=== PATIENT | female | born 1995 | race African-American/Black ===

== ENCOUNTER 2024-11-16 22:01 | Emergency (ER) | payer OTHER, SELFPAY ==
--- NOTE | ~2024-11-16 | XR_ITS ---
Right Hand Technique: PA, oblique, and lateral views were obtained. Clinical History: Pain Findings: No acute fracture or dislocation is seen. Osseous alignment is anatomic. Joint spaces are p reserved. Soft tissues are unremarkable. Impression: Unremarkable right hand. Reviewed, dictated and finalized at location M. Impression: Unremarkable right hand.
[2024-11-16 22:12] VITALS: BP 103/91; PULSE 94; RESP 18; TEMP 37.1; O2SAT 100
--- NOTE | 2024-11-16 22:48 | ED_ITS ---
HPI - Extremity Injury (Upper) General Chief Complaint: Extremity Injury, Upper Stated Complaint: Right hand pain Time Seen by Provider: 11/16/24 22:27 Source: patient Mode of arrival: ambulatory Limitations: no limitations History of Present Illness HPI narrative: This is a 29-year-old female who presents to the ED for chief complaint of right wrist, right upper extremity pain of the past week to 2 weeks. Patient states that she has been working for [employer] for the past 6 months. 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 She has radiating, shooting pains from right hand up into the right upper arm. States that the pain is worse when she wakes up in the mornings. Denies numbness or specific injury to the hand or wrist. Related Data Allergies Allergy/AdvReac Type Severity Reaction Status Date / Time No Known Allergies Allergy Verified 11/16/24 22:02 Review of Systems Review of Systems: All systems as dictated in HPI Exam Narrative: GENERAL: Well-appearing, well-nourished, and in no acute distress. HEAD: Normocephalic, atraumatic. EYES: PERRLA and EOMI. ENT: Nares clear, no rhinorrhea or epistaxis. Mucous membranes moist. Oropharynx without tonsillar hypertrophy exudate or other lesions. NECK: Supple. No adenopathy or masses. CHEST: No respiratory distress. Clear to auscultation. No wheezes rales or rhonchi HEART: Regular rate and rhythm. No murmur heard. Normal peripheral pulses. ABDOMEN: Soft, nontender, nondistended, normal active bowel sounds. MSK: Normal range of motion. No edema. SKIN: Warm, dry, no rash. NEURO: Alert and oriented x4. No focal deficits. PSYCH: Normal mood and affect. Course Vital Signs Vital signs: Vital Signs Temperature 98.8 F 11/16/24 22:12 Pulse Rate 94 11/16/24 22:12 Respiratory Rate 18 11/16/24 22:12 Blood Pressure 103/91 H 11/16/24 22:12 Pulse Oximetry 100 11/16/24 22:12 Oxygen Delivery Room Air 11/16/24 22:12 Temperature 98.8 F 11/16/24 22:12 Pulse Rate 94 11/16/24 22:12 Respiratory Rate 18 11/16/24 22:12 Blood Pressure 103/91 H 11/16/24 22:12 Pulse Oximetry 100 11/16/24 22:12 Oxygen Delivery Room Air 11/16/24 22:12 MDM - Extremity Injury (Upper) MDM Narrative Medical decision making narrative: This is a 29-year-old female who presents to the ED for chief complaint of right wrist pain and right arm pain, related to repetitive movements at her job. Vitals are normal. Exam remarkable for the above. Right hand x-ray preliminary read shows no acute osseous findings. Presentation most likely consistent with repetitive use injury. Encouraged over the counter wrist brace to help with symptoms. Naproxen Rx given as well. Patient will be discharged in stable condition. Supportive measures discussed and return precautions given. Patient is understanding and agreeable with plan for discharge with PCP follow-up. Discharge Plan Discharge Clinical Impression: Pain of right upper extremity Patient Disposition: Home, Self-Care Condition: Stable Instructions: Antibiotic Form Additional Instructions: Your exam and imaging today are reassuring. This is probably who pain from overuse. Please use [id number] wrist brace to assist with pain. Follow- up with PCP closely on this issue. Take naproxen twice per day. If you have any new or worsening symptoms please return to the ER for further evaluation. Patient Language: Bangladeshi Prescriptions: New naproxen 500 mg tablet 500 mg PO BID PRN (Reason: pain) Qty: 30 0RF Follow-up/Referrals: PHYSICIAN,HIGH SCHOOL MATH TEACHER [Primary Care Provider] - Matt Moncada MD [Physician] - Stand Alone Forms: Work/School Release IP Time of Disposition: 22:52
--- OUTSIDE RECORDS SUMMARY | 2024-11-16 22:50 | XMS_ITS | Patient Health Record ---
Author Organization [facility] Address [address] [place] [address] Care Team Providers Care Tax Economist Name Role Phone Lenard Espana Primary Care Provider Mumtaz Brewer Amos [phone] Allergies No Known Allergies Results Component Value Reference Range Notes 12 Panel Urine Drug Screen Reviewed date:11/12/2024 10:07:42 AM Interpretation: Performing Lab: Notes/Report: THC neg CAM neg MOP (OPI) neg AMP neg MET neg BAR neg BZO neg MDMA neg MTD neg OXY neg PCP neg BUP neg HIV Screen *HIV 1, 2 Ab, p24 Ag ([id number]) Reviewed date:11/13/2024 09:02:07 AM Interpretation:Normal Performing Lab:[facility], [address] [facility], Phone - [phone], Director - [facility] Notes/Report: HIV Ab/p24 Ag Screen Non Reactive Non Reactive HIV-1/HIV-2 antibodies and HIV-1 p24 antigen were NOT detected. There is no laboratory evidence of HIV infection. HIV Negative CBC With Differential/Platel et* Reviewed date:11/13/2024 09:02:08 AM Interpretation:Normal Performing Lab:[facility], [address] [facility], [place], Phone - [phone], [facility] Notes/Report: WBC 4.0 3.4-10.8 x10E3/uL RBC 3.95 3.77-5.28 x10E6/uL Hemoglobin 11.4 11.1-15.9 g/dL Hematocrit 35.2 34.0-46.6 % MCV 89 79-97 fL MCH 28.9 26.6-33.0 pg MCHC 32.4 31.5-35.7 g/dL RDW 14.6 11.7-15.4 % Platelets 352 150-450 x10E3/uL Neutrophils 59 Not Estab. % Lymphs 28 Not Estab. % Monocytes 11 Not Estab. % Eos 1 Not Estab. % Basos 1 Not Estab. % Neutrophils (Absolute) 2.4 1.4-7.0 x10E3/uL Lymphs (Absolute) 1.1 0.7-3.1 x10E3/uL Monocytes(Absolute) 0.4 0.1-0.9 x10E3/uL Eos (Absolute) 0.0 0.0-0.4 x10E3/uL Baso (Absolute) 0.0 0.0-0.2 x10E3/uL Immature Granulocytes 0 Not Estab. % Immature Grans (Abs) 0.0 0.0-0.1 x10E3/uL Hepatitis C Virus Antibody w /Rflx to Quantitative Real-time PCR ([id number]) Reviewed date:11/13/2024 09:02:08 AM Interpretation:Normal Performing Lab:[facility] [place], [address] [facility], Phone - [phone], [facility] Notes/Report: HCV Ab Non Reactive Non Reactive Interpretation: Not infected with HCV unless early or acute infection is suspected (which may be delayed in an immunocompromised individual), or other evidence exists to indicate HCV infection. CMP 14 Comprehensive Metabol ic Panel* Reviewed date:11/13/2024 09:02:08 AM Interpretation: Performing Lab:[facility] [place], [address] [facility], Phone - [phone], [facility] Notes/Report: Glucose 91 70-99 mg/dL BUN 8 6-20 mg/dL Creatinine 0.76 0.57-1.00 mg/dL eGFR 108 >59 mL/min/1.73 BUN/Creatinine Ratio 11 9-23 Sodium 140 134-144 mmol/L Potassium 3.8 3.5-5.2 mmol/L Chloride 105 96-106 mmol/L Carbon Dioxide, Total 21 20-29 mmol/L Calcium 9.2 8.7-10.2 mg/dL Protein, Total 7.4 6.0-8.5 g/dL Albumin 4.5 4.0-5.0 g/dL Globulin, Total 2.9 1.5-4.5 g/dL Bilirubin, Total 0.3 0.0-1.2 mg/dL Alkaline Phosphatase 51 44-121 IU/L AST (SGOT) 29 0-40 IU/L ALT (SGPT) 48 0-32 IU/L QuantiFERON-TB Gold Plus ([id number]) Reviewed date:11/13/2024 09:02:08 AM Interpretation: Performing Lab:[facility], [employer] [facility], Phone - [phone], Director - [facility] Notes/Report: QuantiFERON Incubation TNP Test not performed. No specimen received. QuantiFERON-TB Gold Plus TNP Micheline t not performed Rapid Plasma Reagin (RPR) Te st With Reflex to Quantitative RPR and Confirmatory Treponema pallidum Antibodies Reviewed date:11/13/2024 09:02:08 AM Interpretation:Normal Performing Lab:[facility], [address] [facility], Phone - [phone], Director - [facility] Notes/Report: RPR Non Reactive Non Reactive Reason For Referral No Information Medications Medication SIG (Take, Route, Frequency, Duration) Notes Start Date End Date Status Buprenorphine HCl-Naloxone HCl 4-1 MG 1 film under the tongue and allow to dissolve Sublingual twice a day 11/12/2024 Active Social History Tobacco Use: Social History Observation Description Date Details (start date - stop date) Unknown Tobacco Control (Standard) Question Answer Notes Tobacco use: Uses tobacco in other forms Additional Findings: Tobacco user e-cigarette Problems Problem Type SNOMED Code ICD Code Onset Dates Problem Status W/U Status Risk Notes Problem Tobacco use (801091102) Tobacco use disorder (F17.200) Active confirmed Problem Mental disorder caused by drug (950727609) Opioid use disorder (F11.99) Active confirmed Vital Signs Heart Rate 77 /min 11/12/2024 Respiratory Rate 16 /min 11/12/2024 Oximetry 98 % 11/12/2024 Blood pressure diastolic 80 mm Hg 11/12/2024 Height 65 in 11/12/2024 Blood pressure systolic 118 mm Hg 11/12/2024 Weight 119 lbs 11/12/2024 BMI 19.8 kg/m2 11/12/2024 Encounters Encounter Location Date Provider Diagnosis [facility] [place] [address] [address] [place] [address] 11/12/2024 Mumtaz Brewer Opioid use disorder F11.99 and Tobacco use disorder F17.200 Assessments Encounter Date Diagnosis (ICD Code) Assessment Notes Treatment Notes Treatment Clinical Notes Section Notes 11/12/2024 Tobacco use disorder (ICD-10 - F17.200) 11/12/2024 Opioid use disorder (ICD-10 - F11.99) 11/12/2024 Other Discussed medication side effects, adverse effects, risks, benefits, as well as interactions. Encouraged non-use of opioids. Has naloxone. Recommended participation in recovery groups/counseling services. Agrees to contact office with questions or concerns. Plan Of Treatment Next Appt Details Provider Name:Mumtaz avila, 11/19/2024 08:40:00 AM, [address], [place], [address], Insurance Providers Payer Name Payer Address Payer Phone Subscriber Number Group Number Insured Name Patient Relationship to Insured Coverage Start Date Coverage End Date [facility] [address] [place] [address] [id number] Susie Shin Self - patient is the insured
--- OUTSIDE RECORDS SUMMARY | 2024-11-16 22:50 | XMS_ITS ---
Author Organization [facility] Address [address] [place] [address] Care Team Providers Care Sisal Operator Name Role Phone EspanaLenard pacheco Primary Care Provider [phone] Mumtaz Brewer Unavailable [phone] Allergies No Known Allergies Results Component Value Reference Range Notes 12 Panel Urine Drug Screen Reviewed date:11/12/2024 10:07:42 AM Interpretation: Performing Lab: Notes/Report: THC neg CAM neg MOP (OPI) neg AMP neg MET neg BAR neg BZO neg MDMA neg MTD neg OXY neg PCP neg BUP neg REASON FOR VISIT mat new, last use 11/08/2024, suboxone Medications Medication SIG (Take, Route, Frequency, Duration) [...] Problem Status W/U Status Risk Notes Problem Mental disorder caused by drug (978353853) Opioid use disorder (F11.99) Active confirmed Problem Tobacco use (714189235) Tobacco use disorder (F17.200) Active confirmed Vital Signs Weight 119 lbs 11/12/2024 BMI 19.8 kg/m2 11/12/2024 Height 65 in 11/12/2024 Blood pressure systolic 118 mm Hg 11/13/19 25 Blood pressure diastolic 80 mm Hg 025 Oximetry 98 % 11/12/2024 Heart Rate 77 /min 11/12/2024 Respiratory Rate 16 /min 11/12/2024 Encounters Encounter Location Date Provider Diagnosis [facility] [address] [place] [address] 11/12/2024 Mumtaz Brewer Opioid use disorder F11.99 and Tobacco use disorder F17.200 Assessments Encounter Date Diagnosis (ICD Code) Assessment Notes Treatment Notes Treatment Clinical Notes Section Notes 11/12/2024 Opioid use disorder (ICD-10 - F11.99) 11/12/2024 Tobacco use disorder (ICD-10 - F17.200) 11/12/2024 Other Discussed medication side effects, adverse effects, risks, benefits, as well as interactions. Encouraged non-use of opioids. Has naloxone. Recommended participation in recovery groups/counseling services. Agrees to contact office with questions or concerns. Plan Of Treatment Medication Medication Name Sig Start Date Stop Date Notes Buprenorphine HCl-Naloxone H Cl 4-1 MG 1 film under the tongue and allow to dissolve Sublingual twice a day 11/12/2024 Treatment Notes Assessment Notes Other Discussed medication side effects, adverse effects, risks, benefits, as well as interactions. Encouraged non-use of opioids. Has naloxone. Recommended participation in recovery groups/counseling services. Agrees to contact office with questions or concerns. Future Test Test Name Order Date HIV Screen *HIV 1, 2 Ab, p24 Ag ([id number]) 11/19/2024 CBC With Differential/Platelet* 11/20/19 25 Hepatitis C Virus Antibody w/Rflx to Dejuan ntitative Real-time PCR ([id number]) 11/19/2024 CMP 14 Comprehensive Metabolic Panel* QuantiFERON-TB Gold Plus ([id number]) 2024 Rapid Plasma Reagin (RPR) Te st With Reflex to Quantitative RPR and Confirmatory Treponema pallidum Antibodies 11/19/2024 Next Appt Details Follow Up: 1 Week, Reason: M AR f/u Provider Name:Mumtaz avila, 11/19/2024 08:40:00 AM, [address], [place], [address], Progress Notes * Susie DAY MDOB:1995 (29 yo F)Acc No.[id number]:11/12/2024 Patient: Susie PETERSEN Provider: Anuj Brewer, MSN, SUPERVISOR INSULATION, GRAPHICS ARTIST-C :1995 A ge:29 Y S ex:Female Date:11/12/2024 Address:[address] [place] [address], [facility] Pcp:Lenard Espana Subjective: * Chief Complaints: * M at new, last use 11/08/2024, suboxone * HPI: M AR Initial Assessment: Susie presents for [facility] services. Reports in the past drug of choice was prescription opioid pills. Reports later purchasing blue 30's [address] and taking 1 pill daily, states pills could have been contaminated with fentanyl. Last use in September of 2022 and reports tapering herself off by taking buprenorphine given to her by a friend. Reports in June 2024 starting to take Kratom and later Tianeptine from a smoke shop and wanting to discontinue use, however, has experienced difficulty doing so due to withdrawal symptoms. Interested in starting buprenorphine for treatment. Reports taking 8-9 15ml Tianeptine shots per day with last use on 11/11/2024 at 9pm. Substance use history S ubstance Use History, drugs of choice: O pioids (abuse/misuse of), OTHER (specify): Addiction Treatment History P rior Medications for GASPAR treatment S uboxone T herapy/counseling and Recovery support (peers/groups) N o history of therapy/counseling or engagement with recovery support peer/groups. Therapy/counseling and recovery support discussed and encouraged. Referrals placed. History of Infectious Diseases H istory of viral hepatitis N o H istory of HIV N o H istory of TB N o H istory of other infectious diseases N o History of IV drug use and related infections H istory of injection drug use? N o Acute Trauma A cute Trauma N o Psychiatric History H istory of psychiatric diagnoses? N o Primary Care H as a primary care provider? N o I nterested in primary care services at this time? N o. Assessment and history specific to females F emale/Female at ? Y es P regnancy testing: N egative. Rapid test completed in office and is negative. C ontraception: U ses contraception. Hepatitis A and B vaccination status V accination status Hep A R eports vaccination to Hep A V accination status, Hep B R eports vaccination for Hep B Housing Stability and Employment I s housing stable/safe? 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 Support System: H as a support system: Y es (specify): father, sister, and significant other Narcan Access H as Narcan and has been trained on its use??Yes. Prescription Drug Monitoring Program P rescription Drug Monitoring Program reviewed? Y es. No concerns identified. D epression Screening: PHQ-9 L ittle interest or pleasure in doing things?Several days F eeling down, depressed, or hopeless S everal days T rouble falling or staying asleep, or sleeping too much M ore than half the days F eeling tired or having little energy M ore than half the days P oor appetite or overeating M ore than half the days F eeling bad about yourself or that you are a failure, or have let yourself or your family down S everal days T rouble concentrating on things, such as reading the newspaper or watching television S everal days M oving or speaking so slowly that other people could have noticed; or the opposite, being so fidgety or restless that you have been moving around a lot more than usual N ot at all T houghts that you would be better off or of hurting yourself in some way N ot at all T otal Score 1 0 I nterpretation M oderate Depression S creening: [place] Suicide Severity Rating Scale (LF) 1 . Wish to be : Have you wished you were or wished you could go to sleep and not wake up? N o 2 . Suicidal Thoughts: Have you actually had any thoughts of killing yourself? N o 6 . Suicide Behavior Question: Have you ever done anything,started to do anything, or prepared to end your life? N o I nterpretation: L ow Risk * ROS: B asic ROS: Admits C hills. S weats Admits. D enies C onstipation. I nsomnia D enies. D enies S uicidal Thoughts. * Medical History: * Surgical History: D enemily Past Surgical History * Hospitalization/Major Diagno stic Procedure: D enies Past Hospitalization * Family History: F ather: alive. M other: alive. 1 brother(s) , 3 sister(s) - healthy. . moother has heart diease. 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 * Examination: A FLACO Physical Assessment: Intoxication and Withdrawal signs I ntoxication signs N o signs of intoxication are present during examination. W ithdrawal Signs N o withdrawal signs are present during examination. . G eneral Examination: GENERAL APPEARANCE: p leasant, in no acute distress. EYES: P ERRLA. HEART: r egular rate and rhythm. LUNGS: r espirations regular and easy. PSYCH: a lert, oriented x4, speech clear, good eye contact, full range of affect/positive mood, judgement and insight good, thought process logical, goal directed. Assessment: * Assessment: 1. T obacco use disorder - F17.200 2 . O pioid use disorder - F11.99 (Primary) Plan: * Treatment: Value Reference Range T HC neg * C OC neg * M OP (OPI) neg * A MP neg * M ET neg * B AR neg * B ZO neg * M DMA neg * M TD neg * O XY neg * P CP neg * B UP neg ?LAB: CBC With Differential/Platelet* (Ordered for 11/19/2024) (Collection Date & Time - 11/12/2024 10:08 AM) ?LAB: CMP 14 Comprehensive Metabolic Panel* (Ordered for 11/19/2024) (Collection Date & Time - 11/12/2024 10:08 AM) ?LAB: HIV Screen *HIV 1, 2 Ab, p24 Ag ([id number]) (Ordered for 11/19/2024) (Collection Date & Time - 11/12/2024 10:08 AM) ?LAB: QuantiFERON-TB Gold Plus ([id number]) (Ordered for 11/19/2024) ?LAB: Hepatitis C Virus Antibody w/Rflx to Quantitative Real-time PCR ([id number]) (Ordered for 11/19/2024) (Collection Date & Time - 11/12/2024 10:08 AM) ?LAB: Rapid Plasma Reagin (RPR) Test With Reflex to Quantitative RPR and Confirmatory Treponema pallidum Antibodies (Ordered for 11/19/2024) (Collection Date & Time - 11/12/2024 10:08 AM)2.?Others? Notes: Discussed medication side effects, adverse effects, risks, benefits, as well as interactions. Encouraged non-use of opioids. Has naloxone. Recommended participation in recovery groups/counseling services. Agrees to contact office with questions or concerns.?? * Procedure Codes: 9 9000 SPECIMEN HANDLING * Preventive Medicine: Counseling: S MOKING: Patient counselled on the dangers of tobacco use and urged to quit. 0 11/12/2024 * Follow Up: 1 Week (Reason: NOV f/u) * * INE STRIPPER Sign off status: Completed true * Provider: Anuj Brewer, MSN, SUPERVISOR INSULATION, GRAPHICS ARTIST-C Date: 0 11/12/2024 Generated for Ori bañuelos/Yinka/eTransmitting on: 0 11/16/2024 10:50 PM MACHINE STRIPPER History and Physical Notes * HPI (History of Present Illness) Category Sub-Category Detail Notes Category Not es Depression Screening PHQ-9 Little inte rest or pleasure in doing things: Several days Feeling down, depressed, or hopeless: Se veral days Trouble falling or staying a sleep, or sleeping too much: More than half the days Feeling tired or having little energy: M ore than half the days Poor appetite or overeating: More than h mukund the days Feeling bad about yourself o r that you are a failure, or have let yourself or your family down: Several days Trouble concentrating on thi ngs, such as reading the newspaper or watching television: Several days Moving or speaking so slowly that other people could have noticed; or the opposite, being so fidgety or restless that you have been moving around a lot more than usual: Not at all Thoughts that you would be b melanie off or of hurting yourself in some way: Not at all Total Score: 10 Interpretation: Moderate Depression Screening [place] Suicide Sev erity Rating Scale (LF) 1. Wish to be : Have you wished you were or wished you could go to sleep and not wake up?: No 2. Suicidal Thoughts: Have you actually had any thoughts of killing yourself?: No 6. Suicide Behavior Question: Have you ever done anything,started to do anything, or prepared to end your life?: No Interpretation:: Low Risk MAR Initial Assessment History of Infect ious Diseases History of viral hepatitis: No History of HIV: No History of TB: No History of other infectious diseases: No Acute Trauma Acute Trauma: No History of IV drug use and r elated infections History of injection drug use?: No Psychiatric History History of psychiatric diagn oses?: No Substance use history Substance Use Hist ory, drugs of choice:: Opioids (abuse/misuse of), OTHER (specify): Addiction Treatment History Prior Medica tions for GASPAR treatment: Suboxone Therapy/counseling and Recov [place] support (peers/groups): No history of therapy/counseling or engagement with recovery support peer/groups. Therapy/counseling and recovery support discussed and encouraged. Referrals placed. Primary Care Has a primary care provider?: No Interested in primary care services at this time?: No. Assessment and history specific to females Femal e/Female at ?: Yes testing:: Negative. Rapid test completed in office and is negative. Contraception:: Uses contraception. 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 Support System: Has a support system :: Yes (specify): father, sister, and significant other Narcan Access Has Narcan and has b david trained on its use?: Yes. Prescription Drug Monitoring Program Prescription Drug Monitoring Program reviewed?: Yes. No concerns identified. Examination Category Sub-Category Detail Notes Category Not es General Examination GENERAL APPEARANCE: pleasant, in n o acute distress EYES: PERRLA HEART: regular rate and rhy thm LUNGS: respirations regular and easy PSYCH: alert, oriented x4, speech clear, good eye contact, full range of affect/positive mood, judgement and insight good, thought process logical, goal directed ASAM Physical Assessment Intoxication an d Withdrawal signs Intoxication signs: No signs of intoxication are present during examination. . Withdrawal Signs: No withdrawal signs ar e present during examination.
--- OUTSIDE RECORDS SUMMARY | 2024-11-16 22:50 | XMS_ITS | Continuity of Care Document ---
Author Organization [facility] Address [address] [place] [address] Phone Care Team Providers Care Land Development Project Manager Name Role Phone Lara Susie TORRES Unavailable Unavailable Allergies, Adverse Reactions, Alerts Substance Reaction Status Criticality No Known Allergies Active No Inform ation Medications Medication Instructions Dosage Effective Dates (start - stop) Status Comments Zofran 8 mg tablet take 1 tablet by ora l route once daily as needed - Active Trintellix 10 mg tablet take 1 tablet by oral route every day at the same time each day 10 MG - Active Procedures Procedure Date Infectious agent detection by nucleic ac id PSYCH DIAG EVAL W/MED SRVCS OFFICE/OUTPATIENT VISIT, EST PSYCH DIAG EVAL W/MED SRVCS Results Test Name Date and Time Measure Units Reference Range Abnormal Flag Status Comments Panel Description: SARS-CoV- 2 (COVID-19) RNA [Presence] in Respiratory specimen by TRAVIS with probe detection Final SARS CoV 2 RNA 2020 09:34:0 0 NOT DETECTED NOT DETECTED N Final A Not Detected (negative) test result for this testmeans that SARS- CoV-2 RNA was not present in the specimenabove the limit of detection. A negative result does notrule out the possibility of COVID-19 and should not beused as the sole basis for treatment or patient management decisions. If COVID-19 is still suspected, based on exposure history together with other clinical findings,re-testing should be considered in [facility]. Laboratory test results shouldalways be considered in the context of clinical observations and epidemiological data in making a finaldiagnosis and patient management decisions. Please review the Fact Sheets and FDA authorizedlabeling available for health care providers andpatients using the following websites:https://www .[employer].Jenn Rykert /home/Covid-19/HCP/ NAAT/fact-sheet2 https://www.Digital Lifeboat.Tongxue/home/Co vid-19/Patients/NAAT /fact-sheet2 This test has been authorized by the FDA under an Emergency Use Authorization (EUA) for use by serena goins. Due to the current public health emergency, [facility] is receiving a high volume of samples froma wide variety of swabs and media for COVID-19 testing.In order to serve patients during this public healthcrisis, samples from appropriate clinical sources are being tested. Negative test results derived fromspecimens received in non-commercially manufacturedviral collection and transport media, or in media andsample collection kits not yet authorized by FDA forCOVID-19 testing should be cautiously evaluated and thepatient potentially subjected to extra precautions suchas additional clinical monitoring, including collectionof an additional specimen. Methodology: Nucleic Acid Amplification Test (NAAT)includes RT-PCR or TMA Additional information about COVID-19 can be foundat the [employer] website:www.OjOs.com/Covid19 . Advance Directives Directive Yes / No Effective Date File Name No Information Encounters Encounter Description Practice Location Reason(s) For Visit Diagnoses Date Provider Providers Copied on Encounter [facility], [address] [place], [place] [address], [id number], [place] tel:[phone] [facility] No Information 1 Lara Richards. [address] [facility], [id number] [facility] [place] [id number], [place]. tel:[phone] Referring Provider: Susie Lara, [address] [id number] [place], [address]. tel:[phone] [facility], [address], [place], [id number], [place] tel:[phone] [facility] No Information 8 Devendra Allen. [address], [id number] [place], [id number], [place]. tel:[phone] PSYCH DIAG EVAL W/MED SRVCS [facility], [address], [place], [id number], [place] tel:[phone] [facility] Major depressionGe neralized Anxiety DisorderFami ly history of alcohol abuse and dependenceFa dianne history of other mental and behavioral disordersCan nabis dependenceCo sang dependence, in remissionAlc ohol dependence, in remission 8 Devendra Tiffany. [address], [id number] [place], [id number], [place]. tel:[phone] Referring Provider: Tiffany Ramsay, [address] [id number] [place], [address]. tel:[phone] OFFICE/OUTPA TIENT VISIT, EST [facility], [address], [place], [id number], [place] tel:[phone] [facility] Moderate cannabis use disorderMild cocaine stimulant use disorderBipo lar II DisorderMild alcohol use disorderBody mass index (BMI) 19 or less, adult Dec-0 8 Iveth Sunshine. [address], [id number] [facility] [place] [id number], [place]. tel:[phone] Referring Provider: Jong Lazaro, [address] [id number] [place], [address]. tel:[phone] PSYCH DIAG EVAL W/MED SRVCS [facility], [address], [place], [id number], [place] tel:[phone] [facility] Body mass index (BMI) 19 or less, adultModerat e cannabis use disorderMild cocaine stimulant use disorderBipo lar II DisorderMild alcohol use disorder 8 Iveth Sunshine. [address], [id number] [facility] [place], [id number], . tel:[phone] Referring Provider: Jong Lazaro, [address] [id number] [place], [address]. tel:[phone] Family History Family Member Type Diagnosis Age At Onset Problem (finding) Family history of Diabetes mellitus Maternal grandmother Problem (finding) Diabetes mellit us Mother Problem (finding) hypertension Problem (finding) Family history of hyper tension Mother Problem (finding) manic-depressive state Problem (finding) Family history of malignant neoplasm of lung Maternal grandmother Problem (finding) chronic obstruc tive lung disease Maternal grandmother Problem (finding) hypertension Father Problem (finding) hypertension Father Problem (finding) alcoholism Mother Problem (finding) schizophrenia Payers Payer name Insurance type Covered democrat ID Authoriza tion(s) No Information Social History Type Description Quantity Date Captured Comments Sex Female Smoking Status No Information Sexual Orientation Bisexual Gender Identity Female Chief Complaint And Reason For Visit No Information Reason For Referral Reason For Referral No Information Plan Of Treatment Date Type Action Status Goal Tdap. Due on due Goal Td vaccine. Due on 18 due Goal Depression screening. Due on due Goal HPV (1st). Due on 8 due Goal Influenza vaccine. Due on due Goal PAP. Due on due Goal Depression screening. Due on due Goal HPV (1st). Due on 8 due Goal Influenza vaccine. Due on due Goal PAP. Due on due Goal Td vaccine. Due on 18 due Goal Tdap. Due on due Goal PAP. Due on due Goal Influenza vaccine. Due on Ap due Goal HPV (1st). Due on 8 due Goal Depression screening. Due on due Goal Td vaccine. Due on 18 due Goal Tdap. Due on due Goal Influenza vaccine. Due on Ma due Goal PAP. Due on due Goal Tdap. Due on due Goal Td vaccine. Due on 18 due Goal Depression screening. Due on due Goal HPV (1st). Due on 8 due Goal Lifestyle education regardin g diet completed Goal Lifestyle education regardin g diet completed History Of Present Illness Encounter Date Complaint History Of Prese nt Illness No Information Functional Status Date Functional Assessmen t No Information Instructions Date Instruction Additional Infor rock Weight monitoring Related to Bod y mass index (BMI) 20.0-20.9, adult Lifestyle education regarding di et Related to Body mass index (BMI) 19.9 or less, adult Weight monitoring Related to Bod y mass index (BMI) 19.9 or less, adult Weight monitoring Related to Bod y mass index (BMI) 19.9 or less, adult Lifestyle education regarding di et Related to Body mass index (BMI) 19.9 or less, adult Assessments Type Assessment Date No Information Patient Care Teams Name Effective Dates (start - stop) Status Members No Information
--- OUTSIDE RECORDS SUMMARY | 2024-11-16 22:50 | XMS_ITS | Continuity of Care Document ---
Author Organization [facility] [place] [address] [place] [address] Phone Care Team Providers Care Director Of Digital Platforms Name Role Phone Sergio CORINNECarolannn Unavailable Unavailable Medications Medication Instructions Dosage Effective Dates (start - stop) Status Comments SF 5000 Plus 1.1 % dental cream Palmer on Teeth by oral route every day . Spit out excess. No food or drink for 30 minutes after brushing. - No Longer Active Procedures Procedure Date Full Mouth Series Of Radiographs 2021 Patient Intake Completed ZYE-Zyw-Jsbv <1 Year Comprehensive Oral Evaluation 2 Periodontal Status-Stable Caries Risk-High Treatment Plan Initiated Prescription Documentation Referral To Oral Surgery-Dr. Powell/Dr. Selin segura Referral To Oral Surgery-NVOS 2 EDR Documentation Approval Patient Intake Completed FDE-Abd-Ntho <1 Year Panoramic Film Bitewing Radiograph-No Charge 2 Limited Oral Evaluation-Problem Focused Urgent Care Bitewing Radiograph-No Charge 2 EDR Documentation Approval Advance Directives Directive Yes / No Effective Date File Name No Information Encounters Encounter Description Practice Location Reason(s) For Visit Diagnoses Date Provider Providers Copied on Encounter [facility], [address] [place] [address], [id number], tel:[phone] [facility] No Information Sergio Vuongn. [address] [place] [address], [id number], . tel:[phone] [facility], [address] [place] [address], [id number], tel:[phone] [facility] No Information Jerry De Dios. [address] [place] [address], [id number], . tel:[phone] Family History Family Member Type Diagnosis Age At Onset No Information Payers Payer name Insurance type Covered democrat ID Authorrachida karinasaida(s) D Other Insurance CI [id number] [facility] Social History Type Description Quantity Date Captured Comments Sex Female Smoking Status No Information Sexual Orientation Bisexual Gender Identity Female Chief Complaint And Reason For Visit No Information Reason For Referral Reason For Referral No Information History Of Present Illness Encounter Date Complaint History Of Prese nt Illness No Information Functional Status Date Functional Assessmen t No Information Instructions Date Instruction Additional Infor mation No Information Assessments Type Assessment Date No Information Patient Care Teams Name Effective Dates (start - stop) Status Members No Information
== END 2024-11-16 22:57 | disposition home or self-care (01) ==
PROVIDERS: Emergency Provider Physician Assistant
DX: M79.601 Pain in right arm (principal)
CPT/HCPCS: 73130; 99283